=== PATIENT | male | born 1975 | race Caucasian/White ===

== ENCOUNTER → 2019-09-24 | Outpatient (CLI) | payer OTHER ==
--- NOTE | 2019-09-24 08:16 | REP ---
Duplex extremity venous ultrasound: Right lower extremity. History: Right leg pain. Rule out DVT. Findings: The deep veins are anechoic and fully compressible from the groin to the popliteal fossa in the right lower extremity. Color flow imaging is homogeneous. Spectral Doppler interrogation demonstrates intact respiratory variation in flow and normal manual augmentation of flow. There is no evidence of deep vein thrombosis. Impression: Negative right lower extremity duplex venous ultrasound. No evidence of deep vein thrombosis. Electronically Signed by Duy Jones MD 09/24/2019 08:08 A
== END ==
LOC: M RAD 06:01
PROVIDERS: ATTEND Student in an Organized Health Care Education/Training Program
DX: M79.604 Pain in right leg (principal); M79.605 Pain in left leg

== ENCOUNTER → 2019-10-04 | Outpatient (CLI) | payer OTHER ==
--- NOTE | 2019-10-04 12:27 | REP ---
Three-phase bone scan of the knees: History: Bilateral leg pain. Worsening with exertion. Rule out stress reaction stress fracture. Technique: 22.0 mCi technetium 99m MDP is injected and three-phase imaging was acquired centered just below the knees. Scintigraphic findings: Anterior and posterior flow study is normal. Blood pool images demonstrate symmetric distribution of blood pool activity bilaterally. No focal or asymmetric area is seen. Delayed scan images demonstrate normal symmetric uptake in skeletal structures above and below the knees bilaterally. There is no evidence of stress fracture or focal stress periostitis. Impression: Negative three-phase bone scan centered at the knees. Electronically Signed by Duy Jones MD 10/04/2019 03:17 P
== END ==
LOC: M RAD 07:28 → EDUNIT# 08:00
PROVIDERS: ATTEND Student in an Organized Health Care Education/Training Program
DX: M79.605 Pain in left leg (principal); M79.604 Pain in right leg

== ENCOUNTER → 2024-01-13 | Outpatient (CLI) | payer OTHER | LOC: M SLEEP 20:00 | PROVIDERS: ATTEND Nurse Practitioner Family | DX: G47.33 Obstructive sleep apnea (adult) (pediatric) (principal) ==

== ENCOUNTER → 2024-05-28 | Outpatient (CLI) | payer OTHER | LOC: M SLEEP 20:00 | PROVIDERS: ATTEND Nurse Practitioner Family | DX: G47.33 Obstructive sleep apnea (adult) (pediatric) (principal) ==